=== PATIENT | female | born 1995 | race Caucasian/White ===

== ENCOUNTER 2020-12-10 18:00 | Emergency (ER) | payer MEDICAID, SELFPAY ==
[2020-12-10] VITALS (11 sets, daily range): BP systolic 96–114; BP diastolic 57–76; PULSE 63–114; RESP 14–17; TEMP 36.8–38.8; O2SAT 95–100; BMI 19.3
--- NOTE | 2020-12-10 18:53 | XRR_ITS ---
PROCEDURE INFORMATION: Exam: XR Chest, 1 View Exam date and time: 12/10/2020 7:10 PM Age: 25 years old Clinical indication: Fever; Type not specified; Patient HX: Chest pain x 2 months TECHNIQUE: Imaging protocol: XR of the chest Views: 1 view. COMPARISON: No relevant prior studies available. FINDINGS: Lungs: Unremarkable. No consolidation. Pleural spaces: Unremarkable. No pleural effusion. No pneumothorax. Heart/Mediastinum: Unremarkable. No cardiomegaly. Bones/joints: Unremarkable. XR/XR chest 1V portable [id number] IMPRESSION: No acute findings.
--- NOTE | 2020-12-10 19:08 | ED_ITS ---
HPI - COVID General: Chief Complaint: COVID symptoms Stated Complaint: HEAD AND RIB PAIN Time Seen by Provider: 12/10/20 18:54 Source: patient Mode of arrival: ambulatory Limitations: no limitations Triage information: Has fever, cough or shortness of breath . No known COVID + exposure last 14 days History of Present Illness: HPI Narrative: 25-year-old female states she had a fever along with body aches and headache over the last 2 days. She has had no sick contacts. She denies any neck pain or neck stiffness. She had full range of motion denied of any pain with movement of her head or neck. She denies cough. She denies any vomiting or diarrhea. Denies any worsening improving factors. States her headache is a 5 out of 10 currently. COVID 19 common symptoms: positive fever(s), chills and headache(s); negative dyspnea, body aches, throat pain, nausea, vomiting or diarrhea COVID 19 other sytmptoms: negative chest pain COVID Results: SARS-CoV-2 Antigen (Rapid) Negative (Negative) 12/10/20 19:48 12/10/20 Nasal/Oral Coronavirus 2019 PCR Pending 12/10/20 19:25 12/10/20 Review of Systems Const: Reports: fever(s) and chills; Denies: body aches or change in appetite Eyes: Denies: blurry vision or eye discomfort ENMT: Denies: throat pain or dental pain Card: Denies: chest pain Resp: Denies: dyspnea GI: Denies: abdominal pain, nausea, vomiting or diarrhea : Denies: dysuria Musc: Denies: neck pain or back pain Skin/Breast: Denies: rash Neuro: Reports: headache(s) Psych: Denies: depression Reji/Lymph: Denies: easy bruising All/Imm: Denies: urticaria PFSH ED PFSH: Family History (Updated 09/19/20 @ 11:09 by Celina Beckman LPN) Other CAD (coronary artery disease) Cancer Social History (Updated 09/19/20 @ 11:10 by Celina Beckman LPN) Smoking and tobacco status: current every day smoker Alcohol intake: never Physical Exam Const: COMMON NORMALS: no acute distress, patient oriented x3 and healthy appearing HENMT: COMMON NORMALS: normocephalic and atraumatic HEAD & SCALP: normocephalic and atraumatic Eye: COMMON NORMALS: Equal, round and reactive pupils present and EOMs intact bilaterally PUPIL: Yes Equal, round and reactive pupils present Neck/C-Spine: COMMON NORMALS: full ROM and no meningeal signs Chest: COMMONS NORMALS: normal inspection of the chest and normal palpation of entire chest wall Resp: COMMON NORMALS: normal respiratory effort, No retractions, No use of accessory muscles and clear to auscultation bilaterally AUSCULTATION: clear to auscultation bilaterally Cardio: COMMON NORMALS: regular rate, regular rhythm and No murmurs present (Cardio) RATE: regular rate RHYTHM: regular rhythm GI: COMMON NORMALS: Normal to inspection, nondistended, normoactive bowel sounds present, Soft to palpation, non-tender and no masses PALPATION: Yes Soft to palpation Extremity: COMMON NORMALS: normal to inspection and full ROM Neuro: COMMON NORMALS: patient oriented x3, moves all extremities and no focal motor deficits MENINGEAL SIGNS: Yes no meningeal signs Psych: COMMON NORMALS: mental status grossly normal, Normal thought process present and cooperative THOUGHT PROCESS: Normal thought process present Skin: COMMON NORMALS: no rashes or lesions noted and no wounds GENERAL SKIN EXAM: no rashes or lesions noted Course Vital Signs: Vital signs: Vital Signs Temperature 98.2 F 12/10/20 21:00 Pulse Rate 78 12/10/20 23:12 Respiratory Rate 16 12/10/20 23:12 Blood Pressure 102/60 12/10/20 22:45 Pulse Oximetry 100 12/10/20 23:12 MDM - COVID MDM Narrative: Medical decision making narrative: Susan presents here with cystitis likely causing her fever. She had no vomiting and is well-appearing here.. We will give her IV Rocephin here and start her on Keflex along with Naprosyn. She is stable for discharge and is to follow-up with PCP in 3 to 5 days and return if worsening. She understands agrees to plan. Lab Data: Labs: Lab Results 12/10/20 12/10/20 12/10/20 Range/Units 19:23 19:23 19:23 WBC 12.6 H (4.0-10.0) 10^3/ uL RBC 4.27 (4.1-5.3) 10^6/u L Hgb 13.1 (11.5-15.3) g/dL Hct 40.6 (37.0-47.0) % MCV 95.1 (81-99) fL MCH 30.7 (28.0-34.0) pg MCHC 32.3 (30.0-36.0) g/dL RDW 13.2 (12.1-15.1) % Plt Count 215 (130-400) 10^3/c mm MPV 10.2 (7.4-10.4) fL Neut % (Auto) 82.4 % Lymph % (Auto) 10.0 % [place] % (Auto) 6.7 % Eos % (Auto) 0.1 % Baso % (Auto) 0.6 % Neut # (Auto) 10.42 H (1.8-7.7) 10^3/u L Lymph # (Auto) 1.3 (0.8-4.8) 10^3/u L [place] # (Auto) 0.9 (0.2-0.9) 10^3/u L Eos # (Auto) 0.0 (0.0-0.8) 10^3/u L Baso # (Auto) 0.1 (0.0-0.1) 10^3/u L Nucleated RBC % (a uto) 0 % Nucleated RBCs # 0.0 /100WBC Sodium 135 L (136-145) mmol/L Potassium 3.8 (3.5-5.1) mmol/L Chloride 99 (98-107) mmol/L Carbon Dioxide 25 (22-29) mmol/L Anion Gap 14.8 (5-19) BUN 9 (6-20) mg/dL Creatinine 0.7 (0.5-0.9) mg/dL GFR Calculation 100.4 (90-130) mL/min Glucose 125 H (65-115) mg/dL Calculated Osmolal ity 280 L (285-295) mOsm/k g Lactic Acid 0.7 (0.5-2.2) mmol/L Calcium 9.3 (8.5-10.5) mg/dL Total Bilirubin 0.5 (0.15-1.2) mg/dL AST 13 (0-32) U/L ALT 12 (0-33) U/L Alkaline Phosphata se 61 (35-105) IU/L Total Protein 7.0 (6.6-8.7) g/dL Albumin 4.2 (3.5-5.2) g/dL Globulin 2.8 (1.3-4.6) g/dL HCG, Qual (Negative) Urine Color (Yellow) Urine Appearance (CLEAR) Urine pH (5-7) Ur Specific Gravit y (1.005-1.030) Urine Protein (Negative) Urine Glucose (UA) (Normal) Urine Ketones (Negative) Urine Blood (Negative) Urine Nitrate (Negative) Urine Bilirubin (Negative) Urine Urobilinogen (Negative) mg/dL Ur Leukocyte Karen ase (Negative) Urine RBC (0-2) /hpf Urine WBC (0-5) /hpf Ur Squamous Epith Cells (0-5) /hpf Amorphous Sediment Urine Bacteria (NONE) /hpf Influenza Type A A g (Negative) Influenza Type B A g (Negative) SARS-CoV-2 Ag (Rap id) (Negative) 12/10/20 12/10/20 12/10/20 Range/Units 19:25 19:48 23:15 WBC (4.0-10.0) 10^3/ uL RBC (4.1-5.3) 10^6/u L Hgb (11.5-15.3) g/dL Hct (37.0-47.0) % MCV (81-99) fL MCH (28.0-34.0) pg MCHC (30.0-36.0) g/dL RDW (12.1-15.1) % Plt Count (130-400) 10^3/c mm MPV (7.4-10.4) fL Neut % (Auto) % Lymph % (Auto) % [place] % (Auto) % Eos % (Auto) % Baso % (Auto) % Neut # (Auto) (1.8-7.7) 10^3/u L Lymph # (Auto) (0.8-4.8) 10^3/u L [place] # (Auto) (0.2-0.9) 10^3/u L Eos # (Auto) (0.0-0.8) 10^3/u L Baso # (Auto) (0.0-0.1) 10^3/u L Nucleated RBC % (a uto) % Nucleated RBCs # /100WBC Sodium (136-145) mmol/L Potassium (3.5-5.1) mmol/L Chloride (98-107) mmol/L Carbon Dioxide (22-29) mmol/L Anion Gap (5-19) BUN (6-20) mg/dL Creatinine (0.5-0.9) mg/dL GFR Calculation (90-130) mL/min Glucose (65-115) mg/dL Calculated Osmolal ity (285-295) mOsm/k g Lactic Acid (0.5-2.2) mmol/L Calcium (8.5-10.5) mg/dL Total Bilirubin (0.15-1.2) mg/dL AST (0-32) U/L ALT (0-33) U/L Alkaline Phosphata se (35-105) IU/L Total Protein (6.6-8.7) g/dL Albumin (3.5-5.2) g/dL Globulin (1.3-4.6) g/dL HCG, Qual Negative (Negative) Urine Color (Yellow) Urine Appearance (CLEAR) Urine pH (5-7) Ur Specific Gravit y (1.005-1.030) Urine Protein (Negative) Urine Glucose (UA) (Normal) Urine Ketones (Negative) Urine Blood (Negative) Urine Nitrate (Negative) Urine Bilirubin (Negative) Urine Urobilinogen (Negative) mg/dL Ur Leukocyte Karen ase (Negative) Urine RBC (0-2) /hpf Urine WBC (0-5) /hpf Ur Squamous Epith Cells (0-5) /hpf Amorphous Sediment Urine Bacteria (NONE) /hpf Influenza Type A A g Negative (Negative) Influenza Type B A g Negative (Negative) SARS-CoV-2 Ag (Rap id) Negative (Negative) 12/10/20 Range/Units 23:15 WBC (4.0-10.0) 10^3/ uL RBC (4.1-5.3) 10^6/u L Hgb (11.5-15.3) g/dL Hct (37.0-47.0) % MCV (81-99) fL MCH (28.0-34.0) pg MCHC (30.0-36.0) g/dL RDW (12.1-15.1) % Plt Count (130-400) 10^3/c mm MPV (7.4-10.4) fL Neut % (Auto) % Lymph % (Auto) % [place] % (Auto) % Eos % (Auto) % Baso % (Auto) % Neut # (Auto) (1.8-7.7) 10^3/u L Lymph # (Auto) (0.8-4.8) 10^3/u L [place] # (Auto) (0.2-0.9) 10^3/u L Eos # (Auto) (0.0-0.8) 10^3/u L Baso # (Auto) (0.0-0.1) 10^3/u L Nucleated RBC % (a uto) % Nucleated RBCs # /100WBC Sodium (136-145) mmol/L Potassium (3.5-5.1) mmol/L Chloride (98-107) mmol/L Carbon Dioxide (22-29) mmol/L Anion Gap (5-19) BUN (6-20) mg/dL Creatinine (0.5-0.9) mg/dL GFR Calculation (90-130) mL/min Glucose (65-115) mg/dL Calculated Osmolal ity (285-295) mOsm/k g Lactic Acid (0.5-2.2) mmol/L Calcium (8.5-10.5) mg/dL Total Bilirubin (0.15-1.2) mg/dL AST (0-32) U/L ALT (0-33) U/L Alkaline Phosphata se (35-105) IU/L Total Protein (6.6-8.7) g/dL Albumin (3.5-5.2) g/dL Globulin (1.3-4.6) g/dL HCG, Qual (Negative) Urine Color Yellow (Yellow) Urine Appearance Cloudy A (CLEAR) Urine pH 6.0 (5-7) Ur Specific Gravit y 1.015 (1.005-1.030) Urine Protein 1+ H (Negative) Urine Glucose (UA) Norm (Normal) Urine Ketones 2+ H (Negative) Urine Blood 2+ H (Negative) Urine Nitrate Positive H (Negative) Urine Bilirubin Neg (Negative) Urine Urobilinogen Norm (Negative) mg/dL Ur Leukocyte Karen ase Trace H (Negative) Urine RBC 0-4 H (0-2) /hpf Urine WBC 15-25 H (0-5) /hpf Ur Squamous Epith Cells 0-4 H (0-5) /hpf Amorphous Sediment Not Reportable Urine Bacteria 4+ H (NONE) /hpf Influenza Type A A g (Negative) Influenza Type B A g (Negative) SARS-CoV-2 Ag (Rap id) (Negative) Imaging Data: CXR: Attestation: I personally reviewed and interpreted this imaging study as follows: My impression: no acute abnormality COVID Results: SARS-CoV-2 Antigen (Rapid) Negative (Negative) 12/10/20 19:48 12/10/20 Nasal/Oral Coronavirus 2019 PCR Pending 12/10/20 19:25 12/10/20 Discharge Plan Discharge Patient Disposition: Home Clinical Impression: Acute cystitis Qualifiers: Hematuria presence: without hematuria Qualified Code(s): N30.00 - Acute cystitis without hematuria Condition: Stable Prescriptions: New Keflex 500 mg capsule 500 mg PO Q6H 7 Days Qty: 28 RF: 0 ondansetron 4 mg tablet,disintegrating 4 mg PO Q6H PRN (Reason: nausea and vomiting) Qty: 14 RF: 0 Naprosyn 500 mg tablet 500 mg PO BID PRN (Reason: pain) Qty: 20 RF: 0 Discharge Orders: Discharge ED (Routine); Ordered 12/10/20 Ordered By: Chandrika Grant Discharge Diet: Advance as tolerated Discharge Activity: Resume usual activity Patient Instructions: Urinary Tract Infection in Women (ED) Coding Level of Care Code ED Manager Willow for Chg Fwd Exam Comprehensive
[2020-12-10] MEDS: acetaminophen 500 mg Tablet 1000 MG PO (19:51)
[2020-12-10] MEDS: sodium chloride 0.9% 1,000 ML 999 ML IV ×3 (19:52→22:45)
[2020-12-10] MEDS: ketorolac 30 mg/mL INJ IVP (19:52)
[2020-12-10 20:08] LABS: Basophils # 0.1 10^3/uL (0.0-0.1); Basophils % 0.6 %; Eosinophils % 0.1 %; Hematocrit 40.6 % (37.0-47.0); Hemoglobin 13.1 g/dL (11.5-15.3); Lymphocytes # 1.3 10^3/uL (0.8-4.8); Mean Corpuscular HGB Conc 32.3 g/dL (30.0-36.0); Mean Corpuscular Hemoglobin 30.7 pg (28.0-34.0); Mean Corpuscular Volume 95.1 fL (81-99); Mean Platelet Volume 10.2 fL (7.4-10.4); Monocytes # 0.9 10^3/uL (0.2-0.9); Monocytes % 6.7 %; Neutrophils # 10.42 10^3/uL (1.8-7.7); Neutrophils % 82.4 %; Nucleated Red Blood Cells % 0 %; Platelet Count 215 10^3/cmm (130-400); Red Blood Count 4.27 10^6/uL (4.1-5.3); Red Cell Distribution Width 13.2 % (12.1-15.1); White Blood Count 12.6 10^3/uL (4.0-10.0)
[2020-12-10 20:18] LABS: Influenza A by IFA Negative (Negative); Influenza B by IFA Negative (Negative)
[2020-12-10 20:19] LABS: Lactic Sepsis W/Reflex 0.7 mmol/L (0.5-2.2)
[2020-12-10 20:23] LABS: Alanine Aminotransferase 12 U/L (0-33); Albumin Level 4.2 g/dL (3.5-5.2); Alkaline Phosphatase 61 IU/L (35-105); Anion Gap 14.8 (5-19); Aspartate Amino Transferase 13 U/L (0-32); Blood Urea Nitrogen 9 mg/dL (6-20); Calcium 9.3 mg/dL (8.5-10.5); Carbon Dioxide 25 mmol/L (22-29); Chloride 99 mmol/L (98-107); Globulin 2.8 g/dL (1.3-4.6); Glomerular Filtration Rate 100.4 mL/min (90-130); Glucose 125 mg/dL (65-115); Osmolality Calculated 280 mOsm/kg (285-295); Potassium 3.8 mmol/L (3.5-5.1); Sodium 135 mmol/L (136-145); Total Bilirubin 0.5 mg/dL (0.15-1.2)
[2020-12-10 20:37] LABS: SARS Covid-2 Antigen Negative (Negative)
--- NOTE | 2020-12-10 21:32 | PC.NURSE ---
dr hudson in room with patient
--- NOTE | 2020-12-10 21:59 | PC.NURSE ---
patient given water to help her urinate. patient states she doesn't feel like peeing right now .
--- NOTE | 2020-12-10 23:11 | PC.NURSE ---
patient states she is still unable to pee, patient refuses catheter from nurse for urine sample.
[2020-12-10 23:36] LABS: Urine Appearance Cloudy (CLEAR); Urine Color Yellow (Yellow)
[2020-12-10 23:37] LABS: Add Urine Microscopic? YES; Bacteria Urine 4+ /hpf; Bilirubin Urine Neg (Negative); Blood Urine 2+ (Negative); Glucose Urine UA Norm (Normal); Ketones Urine 2+ (Negative); Leukocyte Esterase Urine Trace (Negative); Nitrate Urine Positive (Negative); Protein Urine 1+ (Negative); RBC Urine 0-4 /hpf (0-2); Specific Gravity, Urine 1.015 (1.005-1.030); Squamous Epithelial Cell Urine 0-4 /hpf (0-5); Urobilinogen Urine Norm (Negative); WBC Urine 15-25 /hpf (0-5)
[2020-12-10 23:38] LABS: Add Urine Culture? Yes
[2020-12-10 23:41] LABS: HCG Qualitative Urine. Negative (Negative)
[2020-12-10] MEDS: cefTRIAXone 1,000 MG in sodium chloride 0.9% (plus) 50 ML 100 MG IV (23:45)
[2020-12-11 00:04] VITALS: PULSE 70; O2SAT 97
[2020-12-11 00:18] VITALS: BP 96/62; PULSE 79; RESP 16; O2SAT 99
[2020-12-11 17:17] LABS: Coronavirus Test Green County Not Detected
--- NOTE | 2020-12-12 08:26 | PC.NURSE ---
attempted to call pt with covid results. message left
--- NOTE | 2020-12-12 11:25 | PC.NURSE ---
PT CALLED BACK AND WAS GIVEN THE RESULTS OF HER COVID TEST
== END 2020-12-11 00:12 | disposition home or self-care (01) ==
PROVIDERS: Emergency Provider Emergency Medicine
DX: N30.00 Acute cystitis without hematuria (principal); F17.210 Nicotine dependence, cigarettes, uncomplicated
CPT/HCPCS: 12345; 71045; 80053; 81001; 81025; 83605; 85025; 87040; 87077; 87086; 87186; 87426; 87635; 87804; 96361; 96365; 96375; 99283; 99284; J0696; J1885; J7030

== ENCOUNTER 2021-05-30 08:23 | Outpatient (CLI) | payer MEDICAID, SELFPAY ==
--- NOTE | 2021-05-30 08:30 | US_ITS ---
WS: [id number] ULTRASOUND ABDOMEN CLINICAL INFORMATION: R10.84 - Generalized abdominal pain COMPARISON: None. FINDINGS: Liver Size: Normal. Craniocaudal length: 12.4 cm. Echogenicity: Normal. Surface nodularity: None. Mass (size and location): None. Bile ducts Intrahepatic ducts: Normal. Common bile duct diameter: 0.3 cm. Gallbladder Normal. Gallstones: None. Gallbladder sludge: None. Gallbladder wall thickening: None. Pericholecystic fluid: None. Sonographic Blanchard sign: Absent. Pancreas Normal as visualized. Spleen Splenomegaly: None. Craniocaudal length: 9.5 cm. Right kidney: Normal. Hydronephrosis: None. Size: 9.3 cm x 4.5 cm x 3.9 cm Left kidney: Normal. Hydronephrosis: None. Size: 9.9 cm x 4.7 cm x 4.9 cm. Abdominal aorta and IVC Visualized portions are normal. Ascites: None. US/US abdomen complete* [id number] IMPRESSION: Normal abdominal ultrasound
== END 2021-05-30 08:24 | disposition home or self-care (01) ==
PROVIDERS: PCP Nurse Practitioner Family; Visit Provider Nurse Practitioner Family
DX: R10.84 Generalized abdominal pain (principal)
CPT/HCPCS: 76700

== ENCOUNTER → 2021-07-02 10:24 | Outpatient (BNVA) | payer MEDICAID, SELFPAY | PROVIDERS: PCP Nurse Practitioner Family; Visit Provider Nurse Practitioner Family | DX: R10.84 Generalized abdominal pain (principal); Z85.6 Personal history of leukemia | CPT/HCPCS: 80053; 80061; 80500; 81003; 83036; 84439; 84443; 85025 ==

== ENCOUNTER → 2021-10-23 08:57 | Outpatient (BNVA) | payer MEDICAID, SELFPAY | PROVIDERS: PCP Nurse Practitioner Family; Visit Provider Internal Medicine | DX: R10.11 Right upper quadrant pain (principal); Z01.812 Encounter for preprocedural laboratory examination | CPT/HCPCS: 87635 ==

== ENCOUNTER 2021-10-28 10:02 | Day surgery (SDC) | payer MEDICAID, SELFPAY ==
--- NOTE | 2021-10-28 10:10 | ANES.PREANE2 ---
Pre-Anesthetic Assessment Pre-Anesthetic Assessment: Height/Weight: Height 1.63 m Preop Diagnosis: Epigastric pain Proposed Procedure: Operation Date: 10/28/21 10:30 Proposed Procedures p EGD 67735 R10.11(Not Applicable) - Len Page MD Familial anesthetic complications: none Last intake: > 8 hrs Social: Social History: Tobacco and No alcohol Exam: Pre-Anes Outpt Exam: alert, oriented x 3, clear to auscultation bilaterally and regular rate & rhythm Airway: MP: 2 Dentition: Other ( I have the worst teeth you've ever seen ) Anesthetic Plan: ASA status: 2 Anesthesia: MAC Risk of > 500 ml blood loss (7ml/kg in children): No PFSH Anesthesia PFSH: 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 She was treated at [facility] Family History Other CAD (coronary artery disease) Cancer Social History Smoking and tobacco status: current every day smoker Alcohol intake: never Data Anesthesia Cardiac Studies: No Data to Display
--- NOTE | 2021-10-28 10:16 | W.PM.OPSFHP ---
Same Day Surgery H&P Indication for Procedure/HPI DATE OF PROCEDURE: October 28, 2021 CHIEF COMPLAINT/INDICATIONFOR SURGICAL PROCEDURE: Postprandial abdominal pain PREOP DIAGNOSIS: Epigastric pain PLANNED PROCEDRUE: Operation Date: 10/28/21 10:30 Proposed Procedures p EGD 90545 R10.11(Not Applicable) - Len Page MD Medications/Allergies* Allergies/Adverse Reactions Allergy/AdvReac Type Severity Reaction Status Date / Time amoxicillin Allergy Unknown Verified 10/22/21 14:20 medroxyprogesterone Allergy unknown Verified 10/22/21 14:20 Pertinent History/Comorbid Conditions* Medical History (Updated 10/22/21 @ 15:02 by Len Page MD) 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 She was treated at [facility] Family History (Updated 09/19/20 @ 11:09 by Celina Beckman LPN) CAD (coronary artery disease) Cancer Social History Smoking and tobacco status: current every day smoker Alcohol intake: never Pertinent Exam Findings alert, oriented x 3, clear to auscultation bilaterally, regular rate & rhythm, operative site marked and procedure specific exam findings Recommendations Surgery/Procedure today Coding Level of Care Code Acute Side Stitching Machine Operator for Carlos Lund
[2021-10-28 10:24] VITALS: BMI 18.3
[2021-10-28 10:41] VITALS: BP 108/62; PULSE 69; RESP 18; TEMP 36.4; O2SAT 98
[2021-10-28] MEDS: sodium chloride 0.9% 1,000 ML 30 ML IV (10:42)
[2021-10-28 10:45] LABS: OR HCG Qualitative Urine Negative (Negative)
[2021-10-28 10:58] VITALS: BP 100/56; PULSE 77; RESP 16; TEMP 37.1; O2SAT 99
[2021-10-28 11:09] VITALS: BP 111/68; PULSE 76; RESP 18; O2SAT 99
== END 2021-10-28 11:50 | disposition home or self-care (01) ==
PROVIDERS: Anesthesiology; PCP Nurse Practitioner Family; Visit Provider Internal Medicine
PROC: 0DJ08ZZ Inspection of Upper Intestinal Tract, Via Natural or Artificial Opening Endoscopic (ICD-10-PCS; CPT 43235; principal; 2021-10-28 10:30)
DX: R10.11 Right upper quadrant pain (principal); F17.210 Nicotine dependence, cigarettes, uncomplicated; Z82.49 Family history of ischemic heart disease and other diseases of the circulatory system
CPT/HCPCS: 43235; 81025; 84703; J2704; J7030

== ENCOUNTER → 2022-02-24 13:33 | Outpatient (BNVA) | payer MEDICAID, SELFPAY | PROVIDERS: PCP Nurse Practitioner Family; Visit Provider Nurse Practitioner | DX: R35.0 Frequency of micturition (principal); Z30.09 Encounter for other general counseling and advice on contraception | CPT/HCPCS: 81000; 81025 ==

== ENCOUNTER 2022-03-03 13:39 | Emergency (ER) | payer MEDICAID, SELFPAY ==
[2022-03-03 13:58] VITALS: BP 111/73; PULSE 83; RESP 18; TEMP 37.2; O2SAT 99; BMI 19.5
[2022-03-03 17:22] VITALS: BP 107/57; PULSE 79; RESP 16; O2SAT 98
--- NOTE | 2022-03-03 17:22 | W.ED.GENADLT ---
HPI - General Adult General: Chief complaint: General Medical Stated complaint: swelling in lymphnodes Time Seen by Provider: 03/03/22 17:22 Source: patient Mode of arrival: ambulatory Limitations: no limitations History of Present Illness: 26-year-old female presents to the emergency room Onset (ago): minute(s) Location: neck Severity: moderate Quality: aching Pain Consistency: constant Relieving factors: none Exacerbating factors: none Associated symptoms: Reports fevers/chills and malaise; Deny chest pain, confusion, cough, diaphoresis, decreased appetite, dyspnea, headache(s), nausea, rash, palpitations, seizures, short of breath, syncope, vomiting or weakness Treatments prior to arrival: none Review of Systems Const: Reports: fever(s), chills and malaise; Denies: diaphoresis ENMT: Denies: throat pain, ear or mastoid pain, nasal discharge or nasal congestion Card: Denies: chest pain, palpitations or syncope Resp: Denies: dyspnea GI: Denies: nausea or vomiting : Denies: flank pain, difficulty voiding, dysuria, urinary frequency or urinary urgency Skin/Breast: Denies: rash Neuro: Denies: headache(s) or confusion PFSH ED PFSH: 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 She was treated at [facility], [place] Family History Other CAD (coronary artery disease) Cancer Social History Smoking and tobacco status: current every day smoker Alcohol intake: never Female Reproductive History: Date of last menstrual period: 02/25/22 Physical Exam Const: COMMON NORMALS: no acute distress GENERAL APPEARANCE: cooperative and comfortable ORIENTATION/CONSCIOUSNESS: Yes awake, Yes oriented to person, Yes oriented to place and Yes oriented to time HENMT: COMMON NORMALS: normocephalic, atraumatic, hearing grossly normal bilaterally, external ears normal, EAC's normal, TM's normal bilaterally, Normal nasal mucous membranes and turbinates present, moist oral mucous membranes and oropharynx normal HEAD & SCALP: normocephalic and atraumatic NOSE: Normal nasal mucous membranes and turbinates present EXTERNAL EAR: Yes external ears normal EXTERNAL AUDITORY CANAL: EAC's normal TYMPANIC MEMBRANE: TM's normal bilaterally OTHER: Poor dentition with multiple completely eroded teeth. No drainage no swelling of the gums. Single tender anterior cervical lymph node that is enlarged. There are others palpable subcentimeter lymph nodes in the cervical lymph chain bilaterally none of which are tender. Eye: COMMON NORMALS: Equal, round and reactive pupils present, EOMs intact bilaterally, conjunctivae normal and no scleral icterus CONJUNCTIVA: Yes conjunctivae normal PUPIL: Yes Equal, round and reactive pupils present Neck/C-Spine: COMMON NORMALS: full ROM, no lymphadenopathy, supple and no JVD Lymph: LYMPHATIC: no lymphadenopathy noted and no lymphedema noted Resp: COMMON NORMALS: normal respiratory effort, No retractions, No use of accessory muscles and clear to auscultation bilaterally AUSCULTATION: clear to auscultation bilaterally Cardio: COMMON NORMALS: no JVD, regular rate, regular rhythm and No murmurs present (Cardio) RATE: regular rate RHYTHM: regular rhythm Extremity: COMMON NORMALS: normal to inspection, capillary refill normal, no clubbing, cyanosis or edema, no calf tenderness and no pedal edema Neuro: SENSORIUM/ORIENTATION: Yes oriented to person, Yes oriented to place and Yes oriented to time Skin: COMMON NORMALS: no rashes or lesions noted GENERAL SKIN EXAM: no rashes or lesions noted Course Vital Signs: Vital signs: Vital Signs Temperature 99.0 F 03/03/22 13:58 Pulse Rate 79 03/03/22 17:22 Respiratory Rate 16 03/03/22 17:22 Blood Pressure 107/57 03/03/22 17:22 Pulse Oximetry 98 03/03/22 17:22 MDM - General Adult Medical Decision Making Patient is a history of leukemia. The only palpable lymph nodes at this time is larger on the Several small small subcentimeter lymph nodes scattered through the neck. We will switch her to clindamycin to better cover for dental pathogens. She should follow-up with dentist also recommend that she follow-up with her primary care doctor. If the lymph node persist she may require further evaluation including possible biopsy. Medical Records I reviewed the patient's medical records. Lab Data I reviewed the patient's lab results. Discharge Plan Discharge Patient Disposition: Home Clinical Impression: Dental caries Condition: Stable Prescriptions: New clindamycin HCl 300 mg capsule 300 mg PO QID 10 Days Qty: 40 0RF Discontinued sulfamethoxazole-trimethoprim [Bactrim DS] 800-160 mg tablet 1 tab PO Q12H 7 Days Qty: 14 0RF Discharge Orders: Discharge ED (Routine); Ordered 03/03/22 Ordered By: Bruno Laurent Referrals: DOMINICK Sanabria, SCHOOL MANAGER [Primary Care Provider] - Patient Instructions: Opioid Safety Activity Restrictions/Additional Instructions: If lymphadenopathy persists follow-up with your primary care doctor for further evaluation possible referral to ENT. Stand Alone Forms: Work/School Release Coding Level of Care Code ED Folder And Notcher for Carlos Lund
== END 2022-03-03 17:41 | disposition home or self-care (01) ==
PROVIDERS: Emergency Provider Family Medicine; PCP Nurse Practitioner Family
DX: K02.9 Dental caries, unspecified (principal); F17.210 Nicotine dependence, cigarettes, uncomplicated; Z85.6 Personal history of leukemia
CPT/HCPCS: 99283

== ENCOUNTER → 2022-08-11 14:21 | Outpatient (BNVA) | payer MEDICAID, SELFPAY | PROVIDERS: Visit Provider Nurse Practitioner | DX: N93.9 Abnormal uterine and vaginal bleeding, unspecified (principal); N92.6 Irregular menstruation, unspecified | CPT/HCPCS: 85025 ==

== ENCOUNTER → 2024-01-01 10:04 | Outpatient (BNVA) | payer MEDICAID, SELFPAY | PROVIDERS: PCP Nurse Practitioner; Visit Provider Nurse Practitioner Family | DX: R50.9 Fever, unspecified (principal); R05.9 Cough, unspecified | CPT/HCPCS: 87400; 87426 ==

== ENCOUNTER 2024-09-26 06:10 | Inpatient (IN) | payer MEDICAID, SELFPAY ==
[2024-09-26] VITALS (26 sets, daily range): BP systolic 96–129; BP diastolic 54–76; PULSE 59–196; BMI 24.9
[2024-09-26] MEDS: oxytocin 30 UNIT/500 ML BAG 600 UNIT IV (06:39)
--- NOTE | 2024-09-26 06:45 | PM.OBGYHP ---
Providers/Chief Complaint Admitting Physician: Alban Li MD Chief Complaint: Poss. SROM HPI CLINICAL QUALITY RN History of Present Illness Susan Jeong is a 29 year old 3 para 2-0-0-2 female who arrived with spontaneous rupture of membranes. She received her care in [place]. She had consistent care. She noted that she was GBS positive that they given her antibiotics, but that they had run out 2 days ago. She also states that she did smoke some marijuana and smoked between a quarter and a half a pack of cigarettes a day. Otherwise her had been unremarkable. She had spontaneous rupture membranes shortly before arrival to hospital. Upon arrival she was noted be complete and and she delivered within minutes of arriving at the hospital. Review of Systems General: Reports: 10 or more systems reviewed and unremarkable except in HPI and below Const: Reports: fatigue; Denies: fever(s) Eyes: Denies: change in vision Card: Denies: chest pain Musc: Reports: back pain Reji/Lymph: Denies: easy bruising Medications/Allergies Home Medications Medication Instructions Recorded Confirmed Last Taken Type vitamin with calcium 1 tab PO DAILY 09/26/24 09/26/24 09/25/24 History no.72-iron 27 mg-folic acid 1 mg tablet ( Vitamins Plus Low Iron) ibuprofen 800 mg tablet 800 mg PO TID #45 tabs 09/27/24 Unknown Rx Allergies Allergy/AdvReac Type Severity Reaction Status Date / Time amoxicillin Allergy Unknown Verified 09/26/24 07:16 PFS CLINICAL QUALITY RN PFSH: Medical History Darier's disease H/O leukemia Abdominal pain Pain Leukemia Diagnosed with Acute Lymphoblastic Leukemia from age 4-7. She was treated at [facility] Family History Other CAD (coronary artery disease) Cancer Social History (Updated 09/26/24 @ 06:53 by Alban Li MD) Smoking and tobacco/nicotine status: current every day tobacco/nicotine user Alcohol intake: never Substance/Drug Use: current Substance/Drug use type: Marijuana Vitals/I&O/Wt Last Vital Signs Pulse 69 09/26/24 06:17 BP 117/58 09/26/24 06:17 Physical Exam Narrative: Status post vaginal delivery. Const: COMMON NORMALS: patient oriented x3 and alert HENMT: COMMON NORMALS: moist oral mucous membranes HEAD & SCALP: normal to inspection Chest: COMMONS NORMALS: normal inspection of the chest Resp: COMMON NORMALS: clear to auscultation bilaterally AUSCULTATION: clear to auscultation bilaterally Cardio: COMMON NORMALS: regular rate and regular rhythm RATE: regular rate RHYTHM: regular rhythm GI: INSPECTION: Yes normal to inspection : OTHER: Vaginal vault and perineum are examined and no signs of tears are noted. Extremity: COMMON NORMALS: normal to inspection GENERAL: Yes edema (Trace) Neuro: COMMON NORMALS: patient oriented x3, moves all extremities and no sensory deficits noted SENSORIUM/ORIENTATION: Yes alert Psych: COMMON NORMALS: mental status grossly normal Skin: COMMON NORMALS: no rashes or lesions noted GENERAL SKIN EXAM: no rashes or lesions noted Data 09/26/24 18:27 Results Labs OB ([facility]): Blood Type O Positive 09/26/24 Antibody Screen Negative 09/26/24 Hct 33.4 % (36-47) L 09/26/24 Hgb 11.10 g/dL (11.27-16.99) L 09/26/24 Rho(D) Type Rh positive 09/26/24 Plt Count 265 10^3/cmm (157-399) 09/26/24 Urine Opiates Screen Negative ng/mL (Negative) 09/26/24 Ur Barbiturates Screen Negative ng/mL (Negative) 09/26/24 Ur Phencyclidine Scrn Negative ng/mL (Negative) 09/26/24 Ur Amphetamines Screen Negative ng/mL (Negative) 09/26/24 U Benzodiazepines Scrn Negative ng/mL (Negative) 09/26/24 Urine Cocaine Screen Negative ng/mL (Negative) 09/26/24 U Marijuana (THC) Screen Positive ng/mL (Negative) H 09/26/24 A&P Assessment and plan (1) Term : The patient presented to the hospital [facility] and had a precipitous delivery. She has done well. I anticipate routine care. Attestations Medical Necessity Statement*: Routine care is anticipated Coding Level of Care Code Acute Code for Chg Fwd Diagnoses Term Z34.90
[2024-09-26 06:55] LABS: Basophils # 0.1 10^3/uL (0.0-0.1); Basophils % 0.5 %; Eosinophils # 0.1 10^3/uL (0.0-0.8); Eosinophils % 0.9 %; Hematocrit 36.9 % (36-47); Lymphocytes # 2.2 10^3/uL (0.8-4.8); Lymphocytes % 21.7 %; Mean Corpuscular HGB Conc 32.2 g/dL (30-55); Mean Corpuscular Hemoglobin 30.6 pg (27-33); Mean Corpuscular Volume 94.9 fl (85-98); Mean Platelet Volume 10.8 fL (7.4-10.4); Monocytes # 0.3 10^3/uL (0.2-0.9); Monocytes % 3.3 %; Neutrophils # 7.26 10^3/uL (1.8-7.7); Neutrophils % 73.1 %; Nucleated Red Blood Cells % 0 %; Platelet Count 242 10^3/cmm (157-399); Red Blood Count 3.89 10^6/uL (3.85-5.65); Red Cell Distribution Width 13.9 % (12.1-15.1); White Blood Count 9.93 10^3/uL (3.29-11.43)
--- NOTE | 2024-09-26 06:55 | PM.DELIVERY ---
Delivery Note: Date of delivery: September 26, 2024 Pre-delivery diagnoses: 29-year-old 3 para 2-0-0-2 term female who arrived to the hospital . Post-delivery diagnoses: Status post precipitous vaginal delivery Delivering Physician: Alban Li Estimated blood loss (mL): 75 Pre-Delivery Course: The patient presented to the hospital shortly after having spontaneous rupture membranes. She was having some mild contractions. After being checked by the nurse she was noted to be . I was contacted at the time of the delivery of the baby. Delivery: DELIVERY: The patient progressed to complete without difficulty. She delivered a female with a weight of 6 pounds 2 ounces with Apgars of 8, 8. The baby was delivered from the vertex position. The baby was then put up on the mother's abdomen and the cord was then clamped and cut shortly thereafter. There was no meconium. The placenta and 3 vessel cord were delivered intact without difficulty after I arrived. The perineum and vaginal vault were carefully examined. No lacerations were noted. Both the mother and the baby were in stable condition. Post-Delivery Status: Good A&P Assessment and plan (1) Term : I anticipate routine care. We are in the process of obtaining her labs from [place] where she receives her care. We will also obtain a urine drug screen on her due to her history of marijuana use. (2) Spontaneous vaginal delivery: Coding Level of Care Code Acute Code for Chg Fwd Diagnoses Term Z34.90 Spontaneous vaginal delivery O80
[2024-09-26] MEDS: lactated ringers 1,000 ML 125 ML IV (07:16)
--- NOTE | 2024-09-26 07:59 | PC.NURSE ---
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 Patient taken to OB14 for triage admission. Patient noted to be grossly ruptured, clear fluid, normal odor. RADHA Danielle requested to perform an SVE and patient agreed. RADHA Danielle found patient to be at this time. Baby's head delivered in [place] position, no nuchal noted, anterior shoulder delivered with next contraction. TOB 0612, Dr Li called at 0612 by RADHA Sanabria. Baby was placed on blanket on mother's abdomen, dried and stimulated by RADHA Truong. Cord clamped and cut at 0632 and cord blood obtained. IV obtained at 0635, labs obtained. Dr Li presented to triage room at 0637, placenta delivered by Dr Li. Pitocin started at 0639 with delivery of placenta. Patient transferred to OB2 via gurney for admission. Dr Levine notified of baby's admission.
[2024-09-26] MEDS: PRENATAL VIT NO.130/IRON/FOLIC 1 EACH TABLET PO (09:05)
[2024-09-26 11:16] LABS: Amphetamines Screen Urine Negative (Negative); Barbiturates Screen Urine Negative (Negative); Benzodiazepines Screen Urine Negative (Negative); Cocaine Screen Urine Negative (Negative); Opiate Screen Urine Negative (Negative); PCP Screen Urine Negative (Negative); THC Screen Urine Positive (Negative)
[2024-09-26] MEDS: benzocaine-menthol 78 gm Canister 1 SPRAY TOPICAL (13:00)
[2024-09-26 18:35] LABS: Hematocrit 33.4 % (36-47); Mean Corpuscular HGB Conc 33.2 g/dL (30-55); Mean Corpuscular Hemoglobin 30.9 pg (27-33); Mean Platelet Volume 10.8 fL (7.4-10.4); Platelet Count 265 10^3/cmm (157-399); Red Blood Count 3.59 10^6/uL (3.85-5.65); Red Cell Distribution Width 13.7 % (12.1-15.1); White Blood Count 13.97 10^3/uL (3.29-11.43)
[2024-09-26] MEDS: ibuprofen 800 mg tablet PO (21:08)
[2024-09-27 00:40] VITALS: BP 108/63; PULSE 70; RESP 18; TEMP 36.4
[2024-09-27 04:49] VITALS: BP 77/49; PULSE 55
--- NOTE | 2024-09-27 08:01 | PM.OBGYDC ---
Discharge Providers [employer]AURANT HOST/HOSTESS Date of Admission: 09/26/24 06:10 Date of Discharge: 09/27/24 Attending Provider at Admission: Alban Li MD Attending Provider at Discharge: Alban Li MD Primary RESTAURANT HOST/HOSTESS: Dr. Prince Oglesby in [place] Diagnoses at Discharge Discharge Diagnosis (1) Term : Status: Acute (2) Spontaneous vaginal delivery: Status: Acute Reason for Visit Reason for Visit: Poss. SROM Hospital Course Hospital Course The patient is a 29-year-old female who presented to the hospital in active labor incomplete. She delivered within minutes of presenting to the hospital. Her delivery was unremarkable. Her course was also unremarkable. Her bleeding has been within normal limits. Her pain is been well-controlled. DFS was involved in her care due to her smoking marijuana during her . She has been bottlefeeding. There have been no other concerns. Information Peripartum Data: Infant Delivery Method: Vaginal Physical Exam Narrative: The patient is alert. She appears comfortable. Her heart has a regular rate and rhythm with no murmurs appreciated. Lungs are clear to auscultation bilaterally. Her fundus is firm and below the umbilicus. Discharge Data Studies Completed and Pending Laboratory Results WBC 13.97 10^3/uL (3.29-11.43) H 09/26/24 18: RBC 3.59 10^6/uL (3.85-5.65) L 09/26/24 18:27 Hgb 11.10 g/dL (11.27-16.99) L 09/26/24 18: Hct 33.4 % (36-47) L 09/26/24 18: MCV 93.0 fl (85-98) 09/26/24 18: MCH 30.9 pg (27-33) 09/26/24 18: MCHC 33.2 g/dL (30-55) 09/26/24 18: RDW 13.7 % (12.1-15.1) 09/26/24 18: Plt Count 265 10^3/cmm (157-399) 09/26/24 18: MPV 10.8 fL (7.4-10.4) H 09/26/24 18: Neut % (Auto) 73.1 % 09/26/24 06:35 Lymph % (Auto) 21.7 % 09/26/24 06:35 Kerr % (Auto) 3.3 % 09/26/24 06:35 Eos % (Auto) 0.9 % 09/26/24 06:35 Baso % (Auto) 0.5 % 09/26/24 06:35 Neut # (Auto) 7.26 10^3/uL (1.8-7.7) 09/26/24 06:35 Lymph # (Auto) 2.2 10^3/uL (0.8-4.8) 09/26/24 06:35 Kerr # (Auto) 0.3 10^3/uL (0.2-0.9) 09/26/24 06:35 Eos # (Auto) 0.1 10^3/uL (0.0-0.8) 09/26/24 06:35 Baso # (Auto) 0.1 10^3/uL (0.0-0.1) 09/26/24 06:35 Nucleated RBC % (auto) 0 % 09/26/24 06:35 Nucleated RBCs # 0.0 /100WBC 09/26/24 06:35 Urine Opiates Screen Negative ng/mL (Negative) 09/26/24 10:33 Ur Barbiturates Screen Negative ng/mL (Negative) 09/26/24 10:33 Ur Phencyclidine Scrn Negative ng/mL (Negative) 09/26/24 10:33 Ur Amphetamines Screen Negative ng/mL (Negative) 09/26/24 10:33 U Benzodiazepines Scrn Negative ng/mL (Negative) 09/26/24 10:33 Urine Cocaine Screen Negative ng/mL (Negative) 09/26/24 10:33 U Marijuana (THC) Screen Positive ng/mL (Negative) H 09/26/24 10:33 Blood Type O Positive 09/26/24 06:35 Rho(D) Type Rh positive 09/26/24 06:35 Antibody Screen Negative 09/26/24 06:35 Vitals Last Vital Signs Temp 97.6 F 09/27/24 00:40 Pulse 55 L 09/27/24 04:49 Resp 18 09/27/24 00:40 BP 77/49 09/27/24 04:49 O2 Del Method Room Air 09/27/24 00:40 Results Labs OB ([facility]): Blood Type O Positive 09/26/24 Antibody Screen Negative 09/26/24 Hct 33.4 % (36-47) L 09/26/24 Hgb 11.10 g/dL (11.27-16.99) L 09/26/24 Rho(D) Type Rh positive 09/26/24 Plt Count 265 10^3/cmm (157-399) 09/26/24 Urine Opiates Screen Negative ng/mL (Negative) 09/26/24 Ur Barbiturates Screen Negative ng/mL (Negative) 09/26/24 Ur Phencyclidine Scrn Negative ng/mL (Negative) 09/26/24 Ur Amphetamines Screen Negative ng/mL (Negative) 09/26/24 U Benzodiazepines Scrn Negative ng/mL (Negative) 09/26/24 Urine Cocaine Screen Negative ng/mL (Negative) 09/26/24 U Marijuana (THC) Screen Positive ng/mL (Negative) H 09/26/24 Discharge Plan Discharge Patient Disposition: Home Condition: Stable Prescriptions: New ibuprofen 800 mg Tablet 800 mg PO TID Qty: 45 0RF Continued Vitamin Plus Low Iron 27 mg iron- 1 mg tablet 1 tab PO DAILY Discharge Orders: Discharge Order (Routine); Ordered 09/27/24 Ordered By: Alban Li Referrals: Alban Li MD [Physician] - Prince Oglesby DO [Referring] - 6 Weeks Discharge Diet: Usual diet Discharge Activity: Limit activity as instructed Patient Instructions: Depression (DC), Opioid Safety (DC), Preeclampsia and Eclampsia After Delivery (GEN), Hemorrhage (DC), OB Discharge Report, OB Food/Drug Interaction Guide, OB Care at Home, Opioid Safety, OB Vaginal Deliveries, Abnormal Bleeding Discharge Attestations [employer] HOST/HOSTESS Time Spent in Discharge Care*: less than 30 min Coding Level of Care Code Acute Code for Chg Fwd Diagnoses Term Z34.90 Spontaneous vaginal delivery O80
[2024-09-27] MEDS: measles,mumps,rubella pf Vial (w/diluent) 0.5 ML SUBCUT (10:49)
[2024-09-27] MEDS: PRENATAL VIT NO.130/IRON/FOLIC 1 EACH TABLET PO (10:49)
[2024-09-27 10:56] VITALS: BP 112/68; PULSE 76
[2024-09-27 10:58] VITALS: BP 112/68; PULSE 76; RESP 16; O2SAT 98
== END 2024-09-27 10:58 | disposition home or self-care (01) | DRG 807 ==
LOC: OPOB 09:04 → OBGYN 09:04
PROVIDERS: Admitting Provider Family Medicine; Visit Provider Family Medicine
DX: O99.824 Streptococcus B carrier state complicating childbirth (principal); Z37.0 Single live birth; Z3A.00 Weeks of gestation of pregnancy not specified; O99.334 Smoking (tobacco) complicating childbirth; F17.210 Nicotine dependence, cigarettes, uncomplicated; O62.3 Precipitate labor; O99.324 Drug use complicating childbirth; F12.90 Cannabis use, unspecified, uncomplicated
CPT/HCPCS: 36415; 59025; 59409; 80306; 85025; 85027; 86850; 86900; 90707; 96372; 99211; J2590; J7120

== ENCOUNTER → 2025-09-22 13:24 | Outpatient (BNVA) | payer MEDICAID, SELFPAY | PROVIDERS: PCP Clinical Nurse Specialist Adult Health; Visit Provider Clinical Nurse Specialist Adult Health | DX: Z00.00 Encounter for general adult medical examination without abnormal findings (principal); Z30.09 Encounter for other general counseling and advice on contraception | CPT/HCPCS: 81025 ==